=== PATIENT | female | born 1955 | race Caucasian/White ===

== ENCOUNTER 2016-11-10 09:12 | Outpatient (CLI) ==
[2016-11-10 09:25] LABS: BASOPHILS # (AUTO) 0.1 K/uL (0-0.2); BASOPHILS % (AUTO) 0.7 % (0.0-3.0); EOSINOPHILS # (AUTO) 0.2 K/ul (0.0-0.7); HEMATOCRIT 40.4 % (37.0-47.0); HEMOGLOBIN 13.8 g/dl (12.0-16.0); IMMATURE GRANULOCYTE % (AUTO) 0.1 % (0.0-5.0); LYMPHOCYTES # (AUTO) 3.1 K/uL (0.60-3.4); LYMPHOCYTES % (AUTO) 41.1 (10.0-50.0); MEAN CORPUSCULAR HEMOGLOBIN 30.2 pg (27.0-31.0); MEAN CORPUSCULAR HGB CONC 34.2 (31.8-35.4); MEAN CORPUSCULAR VOLUME 88.4 fl (81.0-99.0); MONOCYTES # (AUTO) 0.4 K/uL (0.4-2.0); MONOCYTES % (AUTO) 5.4 (0-10); NEUTROPHILS # (AUTO) 3.8 K/ul (2.0-6.9); NEUTROPHILS % (AUTO) 50.7; PLATELET COUNT 174 10^3/uL (140-440); RED BLOOD COUNT 4.57 10^6/ul (4.20-5.40); WHITE BLOOD COUNT 7.42 K/ul (4.6-10.2)
[2016-11-10 10:13] LABS: ALBUMIN 3.8 g/dL (3.4-5.0); ALBUMIN/GLOBULIN RATIO 1.31; ANION GAP 14.8; BILIRUBIN,TOTAL 0.41 mg/dL (0.00-1.20); BUN/CREATININE RATIO 14.49; CALCIUM 9.3 mg/dL (8.2-10.2); CHOL/HDL RATIO 6.1 (4.5-5.5); CREATININE 0.69 mg/dL (0.60-1.30); POTASSIUM 3.8 mmol/L (3.5-5.10); TOTAL PROTEIN 6.7 g/dL (6.4-8.2)
== END 2016-11-10 09:13 | disposition home or self-care (01) ==
LOC: LAB 09:12
PROVIDERS: ATTEND Nurse Practitioner Family
DX: Z00.00 Encounter for general adult medical examination without abnormal findings (principal); R00.9 Unspecified abnormalities of heart beat
CPT/HCPCS: 36415; 80053; 80061; 84443; 85025; 93005; 93010

== ENCOUNTER 2016-11-14 14:29 | Outpatient (CLI) ==
--- NOTE | 2016-11-16 08:28 | MAMMO ---
EXAM: Bilateral digital screening mammogram History: Screening Comparison: Bilateral mammogram 12/02/2014 Findings: MLO and CC views of bilateral breasts demonstrate scattered fibroglandular breast parench yma. There are no dominant masses, no suspicious microcalcifications and no architectural distortio ns. Impression: Stable negative mammogram. Recommend followup routine screening mammography in 1 year. BIRADS 1
== END 2016-11-14 14:30 | disposition home or self-care (01) ==
LOC: RAD 14:29
PROVIDERS: ATTEND Nurse Practitioner Family
DX: Z12.31 Encounter for screening mammogram for malignant neoplasm of breast (principal)

== ENCOUNTER 2016-11-28 06:32 | Outpatient (CLI) | payer OTHER ==
--- NOTE | 2016-11-28 08:48 | ECHO2D ---
Date of Exam: 11/28/16 Ordering Physician: [facility] Reason for Echo: PVC'S, LVH M-Mode Normal Adult Results LV Dimensions Normal Adult Results AoV Opening excursions >1.6 >1.6 LVEDD-base- 3.5-5.8 4.3 Ao root dimensions 2.0-3.7 3.3 LVESD-base- 3.1-4.6 L. Atrium dimensions 1.9-3.8 3.9 Post. Wall thickness 0.8-1.1 1.2 IV septum (thickness) 0.7-1.2 1.2 Post. Wall excursion 0.72-1.3 NORMAL Septal motion NORMAL Systolic motion R. 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 BORDERLINE LEFT VENTRICULAR HYPERTROPHY 2. NORMAL VALVES 3. NORMAL LEFT VENTRICULAR CONTRACTILITY MTDD
== END 2016-11-28 06:33 | disposition home or self-care (01) ==
LOC: CAR 06:32
PROVIDERS: ATTEND Nurse Practitioner Family
DX: I51.7 Cardiomegaly (principal); I49.3 Ventricular premature depolarization

== ENCOUNTER 2017-11-28 09:26 | Outpatient (CLI) | END 2017-11-28 09:27 | disposition home or self-care (01) | LOC: RHC-LAB 09:26 | PROVIDERS: ATTEND Nurse Practitioner Family | DX: E78.5 Hyperlipidemia, unspecified (principal) | CPT/HCPCS: 36415; 80053; 80061 ==

== ENCOUNTER 2018-01-04 15:33 | Outpatient (CLI) | END 2018-01-04 15:34 | disposition home or self-care (01) | LOC: RHC-LAB 15:33 | PROVIDERS: ATTEND Nurse Practitioner Family | DX: E78.5 Hyperlipidemia, unspecified (principal) | CPT/HCPCS: 36415; 80053; 80061 ==

== ENCOUNTER 2018-10-26 10:54 | Outpatient (CLI) | END 2018-10-26 10:55 | disposition home or self-care (01) | LOC: RHC-LAB 10:54 | PROVIDERS: ATTEND Nurse Practitioner Family | DX: E78.5 Hyperlipidemia, unspecified (principal); E78.1 Pure hyperglyceridemia; I49.3 Ventricular premature depolarization | CPT/HCPCS: 36415; 80053; 80061; 84443; 85025 ==

== ENCOUNTER 2018-11-02 09:58 | Outpatient (CLI) | END 2018-11-02 09:59 | disposition home or self-care (01) | LOC: RHC-LAB 09:58 | PROVIDERS: ATTEND Nurse Practitioner Family | DX: E87.5 Hyperkalemia (principal) | CPT/HCPCS: 36415; 84132 ==